=== PATIENT | female | born 1990 | race American Indian/Alaskan Native ===

== ENCOUNTER 2021-03-10 19:10 | Emergency (ER) | payer SELFPAY ==
--- NOTE | 2021-03-10 21:54 | Emergency Department Report ---
ED ENT HPI - General Chief complaint: Sore Throat Stated complaint: THROAT FEELS LIKE IT IS CLOSING Time Seen by Provider: 03/10/21 21:37 Source: patient Mode of arrival: Ambulatory Limitations: No Limitations - History of Present Illness MD complaint: sore throat -: Gradual Location: throat Severity: moderate Quality: aching, dull Consistency: constant Improves with: none Worsens with: none Associated Symptoms: pain with swallowing, sore throat - Related Data Previous Rx's Medication Instructions Recorded Last Taken Type Amoxicillin [Amoxicillin TAB] 875 mg PO BID #20 tablet 03/10/21 Unknown Rx Chlorhexidine Mouthwash [Peridex] 15 ml MM BID #1 bottle 03/10/21 Unknown Rx Lidocaine Viscous 2% 5 ml MM Q3H PRN #120 udc 03/10/21 Unknown Rx Allergies Allergy/AdvReac Type Severity Reaction Status Date / Time No Known Allergies Allergy Unverified 03/20/20 13:42 ED Dental HPI - General Chief complaint: Sore Throat Stated complaint: THROAT FEELS LIKE IT IS CLOSING Time Seen by Provider: 03/10/21 21:37 Source: patient Mode of arrival: Ambulatory Limitations: No Limitations - Related Data Previous Rx's Medication Instructions Recorded Last Taken Type Amoxicillin [Amoxicillin TAB] 875 mg PO BID #20 tablet 03/10/21 Unknown Rx Chlorhexidine Mouthwash [Peridex] 15 ml MM BID #1 bottle 03/10/21 Unknown Rx Lidocaine Viscous 2% 5 ml MM Q3H PRN #120 udc 03/10/21 Unknown Rx Allergies Allergy/AdvReac Type Severity Reaction Status Date / Time No Known Allergies Allergy Unverified 03/20/20 13:42 ED Review of Systems ROS: Stated complaint: THROAT FEELS LIKE IT IS CLOSING Other details as noted in HPI Comment: All other systems reviewed and negative ED Past Medical Hx - Past Medical History Previous Medical History?: No - Surgical History Past Surgical History?: Yes Additional Surgical History: tonisllectomy - Social History Smoking Status: Current Every Day Smoker Substance Use Type: None - Medications Home Medications: Home Medications Medication Instructions Recorded Confirmed Last Taken Type Amoxicillin [Amoxicillin TAB] 875 mg PO BID #20 tablet 03/10/21 Unknown Rx Chlorhexidine Mouthwash [Peridex] 15 ml MM BID #1 bottle 03/10/21 Unknown Rx Lidocaine Viscous 2% 5 ml MM Q3H PRN #120 udc 03/10/21 Unknown Rx ED Physical Exam - General Limitations: No Limitations General appearance: alert, in no apparent distress - Head Head exam: Present: atraumatic, normocephalic - Eye Eye exam: Present: normal appearance, PERRL - ENT ENT exam: Present: normal exam, mucous membranes moist, TM's normal bilaterally, other (Pharynx red swollen with no exudate) - Neck Neck exam: Present: full ROM, lymphadenopathy - Respiratory Respiratory exam: Present: normal lung sounds bilaterally. Absent: respiratory distress - Cardiovascular Cardiovascular Exam: Present: regular rate, normal rhythm. Absent: systolic murmur, diastolic murmur, rubs, gallop - GI/Abdominal GI/Abdominal exam: Present: soft, normal bowel sounds - Extremities Exam Extremities exam: Present: normal inspection - Back Exam Back exam: Present: normal inspection - Neurological Exam Neurological exam: Present: alert, oriented X3 - Psychiatric Psychiatric exam: Present: normal affect, normal mood - Skin Skin exam: Present: warm, dry, intact, normal color. Absent: rash Critical care attestation.: If time is entered above; I have spent that time in minutes in the direct care of this critically ill patient, excluding procedure time. ED Disposition Clinical Impression: Pharyngitis Disposition: DC-01 TO HOME OR SELFCARE Is pt being admited?: No Does the pt Need Aspirin: No Condition: Stable Instructions: Pharyngitis, Strep Throat, Adult, Sore Throat Prescriptions: Amoxicillin [Amoxicillin TAB] 875 mg PO BID #20 tablet Lidocaine Viscous 2% 5 ml MM Q3H PRN #120 udc PRN Reason: Pain, Moderate (4-6) Chlorhexidine Mouthwash [Peridex] 15 ml MM BID #1 bottle Referrals: [facility] [Provider Group] - 3-5 Days
== END 2021-03-10 22:03 | disposition home or self-care (01) ==
LOC: ED 19:10
DX: J02.9 Acute pharyngitis, unspecified (principal); F17.200 Nicotine dependence, unspecified, uncomplicated; Z90.89 Acquired absence of other organs; Z79.899 Other long term (current) drug therapy
CPT/HCPCS: 87116; 87430; 99283

== ENCOUNTER 2021-03-13 22:10 | Emergency (ER) | payer SELFPAY ==
[2021-03-13] MEDS ORDERED: predniSONE 50 MG TAB PO ONE (23:58)
[2021-03-13] MEDS ORDERED: ONDANSETRON 4 MG ODT TAB PO ONE (23:58)
[2021-03-13] MEDS ORDERED: FAMOTIDINE 20 MG TAB PO ONE (23:59)
[2021-03-14 03:50] VITALS: BP 123/71
--- NOTE | 2021-03-14 03:54 | Emergency Department Report ---
ED General Adult HPI - General Chief complaint: Sore Throat Stated complaint: EMESIS PUI?: No Source: patient Mode of arrival: Ambulatory Limitations: No Limitations - History of Present Illness Initial comments: Patient is a 30-year-old -[place] female with no past medical history presents to the ED with complaint of acute onset persistent severe sore throat, dysphagia, dysphonia, chest tightness and persistent dry cough with nausea and vomiting intermittently for the last 3 days. Patient states that she was initially evaluated in this ED and was discharged home on antibiotics amoxicillin for suspected acute streptococcal pharyngitis. Patient states that in the last 2 days she has not been able to eat anything because of worsening pain, and that she has also been having persistent drooling with nausea and vomiting. Patient denies dizziness, syncope, headache, chest pain, shortness of breath, wheezing, nasal and sinus congestion, fever, chills, headache or abdominal pain and diarrhea. MD Complaint: Sore throat, persistent dry cough and dysphagia, nausea and vomiting -: Sudden, days(s) (3) Location: mouth, chest Radiation: non-radiation Severity scale (0 -10): 3 Quality: aching, dull Consistency: intermittent Improves with: none Worsens with: eating Associated Symptoms: denies other symptoms, cough, malaise, nausea/vomiting, other (Sore throat). denies: confusion, chest pain, diaphoresis, fever/chills, headaches, loss of appetite, rash, seizure, shortness of breath, syncope, weakness Treatments Prior to Arrival: NSAID - Related Data Previous Rx's Medication Instructions Recorded Last Taken Type Amoxicillin [Amoxicillin TAB] 875 mg PO BID #20 tablet 03/10/21 Unknown Rx Chlorhexidine Mouthwash [Peridex] 15 ml MM BID #1 bottle 03/10/21 Unknown Rx Lidocaine Viscous 2% 5 ml MM Q3H PRN #120 udc 03/10/21 Unknown Rx Allergies Allergy/AdvReac Type Severity Reaction Status Date / Time No Known Allergies Allergy Unverified 03/20/20 13:42 ED Review of Systems ROS: Stated complaint: EMESIS Other details as noted in HPI Constitutional: denies: chills, fever Eyes: denies: eye pain, eye discharge, vision change ENT: throat pain, other (Dysphagia). denies: ear pain Respiratory: cough. denies: shortness of breath, wheezing Cardiovascular: denies: chest pain, palpitations Endocrine: no symptoms reported Gastrointestinal: nausea, vomiting. denies: abdominal pain, diarrhea Genitourinary: denies: urgency, dysuria, discharge Musculoskeletal: denies: back pain, joint swelling, arthralgia Skin: denies: rash, lesions Neurological: denies: headache, weakness, paresthesias Psychiatric: denies: anxiety, depression Hematological/Lymphatic: denies: easy bleeding, easy bruising ED Past Medical Hx - Past Medical History Previous Medical History?: No - Surgical History Past Surgical History?: Yes Additional Surgical History: tonisllectomy - Social History Smoking Status: Current Every Day Smoker - Medications Home Medications: Home Medications Medication Instructions Recorded Confirmed Last Taken Type Amoxicillin [Amoxicillin TAB] 875 mg PO BID #20 tablet 03/10/21 Unknown Rx Chlorhexidine Mouthwash [Peridex] 15 ml MM BID #1 bottle 03/10/21 Unknown Rx Lidocaine Viscous 2% 5 ml MM Q3H PRN #120 udc 03/10/21 Unknown Rx ED Physical Exam - General Limitations: No Limitations General appearance: alert, in no apparent distress - Head Head exam: Present: atraumatic, normocephalic, normal inspection - Eye Eye exam: Present: normal appearance, PERRL, EOMI Pupils: Present: normal accommodation - ENT ENT exam: Present: mucous membranes moist, TM's normal bilaterally, normal external ear exam, other (Mildly erythematous oropharynx) - Neck Neck exam: Present: normal inspection, full ROM - Respiratory Respiratory exam: Present: normal lung sounds bilaterally. Absent: respiratory distress, wheezes, rhonchi, chest wall tenderness - Cardiovascular Cardiovascular Exam: Present: regular rate, normal rhythm, normal heart sounds. Absent: systolic murmur, diastolic murmur, rubs, gallop - GI/Abdominal GI/Abdominal exam: Present: soft, normal bowel sounds. Absent: tenderness, hyperactive bowel sounds, organomegaly - Extremities Exam Extremities exam: Present: normal inspection, full ROM, normal capillary refill - Back Exam Back exam: Present: normal inspection, full ROM. Absent: tenderness, CVA tenderness (R), CVA tenderness (L), muscle spasm, paraspinal tenderness, vertebral tenderness - Neurological Exam Neurological exam: Present: alert, oriented X3, CN II-XII intact, normal gait, reflexes normal - Psychiatric Psychiatric exam: Present: normal affect, normal mood, anxious - Skin Skin exam: Present: warm, dry, intact, normal color. Absent: rash ED Medical Decision Making - Medical Decision Making This is a 30-year-old -[place] female with no past medical history presents to the ED with complaint of acute onset persistent severe sore throat, dysphagia, dysphonia, chest tightness and persistent dry cough with nausea and vomiting intermittently for the last 3 days. Patient states that she was initially evaluated in this ED and was discharged home on antibiotics amoxicillin for suspected acute streptococcal pharyngitis. Patient states that in the last 2 days she has not been able to eat anything because of worsening pain, and that she has also been having persistent drooling with nausea and vomiting. In the ED, patient is alert and oriented x3 and is not in any distress but anxious, and afebrile in triage. Patient was treated sore throat with oral prednisone, antiemetics and pain medication. On reevaluation, patient's pain is well controlled medication. Patient left the ED AGAINST MEDICAL ADVICE prior to having chest x-ray and prior to having reevaluation. - Differential Diagnosis Strep pharyngitis; viral pharyngitis; GERD; allergic pharyngitis; bronchiti Critical care attestation.: If time is entered above; I have spent that time in minutes in the direct care of this critically ill patient, excluding procedure time. ED Disposition Clinical Impression: Nausea and vomiting in adult patient Acute pharyngitis, unspecified Qualifiers: Pharyngitis/tonsillitis etiology: other specified organisms Qualified Code(s): J02.8 - Acute pharyngitis due to other specified organisms Acute bronchitis Qualifiers: Bronchitis organism: other organism Qualified Code(s): J20.8 - Acute bronchitis due to other specified organisms Disposition: DC-07 LEFT AGAINST MED ADVICE Is pt being admited?: No Does the pt Need Aspirin: No Condition: Undetermined Instructions: Acute Bronchitis (ED) Referrals: [facility] [Provider Group] - 3-5 Days Time of Disposition: 03:59 Print Language: SERBIAN
== END 2021-03-14 05:53 | disposition left against medical advice (07) ==
LOC: ED 22:10
DX: J20.8 Acute bronchitis due to other specified organisms (principal); J20.9 Acute bronchitis, unspecified; F17.200 Nicotine dependence, unspecified, uncomplicated; Z90.89 Acquired absence of other organs; Z98.890 Other specified postprocedural states; Z79.899 Other long term (current) drug therapy
CPT/HCPCS: 99282; J7512; Q0162

== ENCOUNTER 2021-04-22 20:41 | Emergency (ER) | payer SELFPAY ==
[2021-04-23 00:04] VITALS: BP 116/83
--- NOTE | 2021-04-23 00:24 | Emergency Department Report ---
- General Chief Complaint: Upper Respiratory Infection Stated Complaint: MUSCUS BLOCKING AIRWAY Source: patient Mode of arrival: Ambulatory Limitations: No Limitations - History of Present Illness Initial Comments: Patient is a 30-year-old -[place] female with past medical history of chronic heavy tobacco abuse who presents to the ED with complaint of acute onset persistent nasal and sinus congestion, frontal sinus pressure and persistent draining of sinuses to her throat causing nausea for the last 2 days, worse in the last 12 hours. Patient denies dizziness, syncope, nausea and vomiting, d iarrhea, chest pain, shortness of breath, cough, fever, chills, headache, change in vision or neck pain. MD Complaint: sore throat, rhinorrhea, nasal congestion, sinus pain -: Sudden, days(s) (2) Severity: moderate Severity scale (0 -10): 2 Quality: dull Consistency: constant Improves With: nothing Worsens With: nothing Context: sick contacts Associated Symptoms: denies other symptoms, rhinorrhea, nasal congestion, sore throat. denies: fever, chills, diaphoresis, headache, stiff neck, cough, chest pain, shortness of breath, abdominal pain, nausea, vomiting, diarrhea, dysuria, rash, confusion, weight loss, epistaxis, hoarseness, ear pain, other Treatments Prior to Arrival: none - Related Data Previous Rx's Medication Instructions Recorded Last Taken Type Amoxicillin [Amoxicillin TAB] 875 mg PO BID #20 tablet 03/10/21 Unknown Rx Chlorhexidine Mouthwash [Peridex] 15 ml MM BID #1 bottle 03/10/21 Unknown Rx Lidocaine Viscous 2% 5 ml MM Q3H PRN #120 udc 03/10/21 Unknown Rx Azithromycin [Zithromax Z-MARYANNE] 250 mg PO DAILY #6 tablet 04/23/21 Unknown Rx Cetirizine HCl [Zyrtec 10mg tab] 10 mg PO DAILY #30 tablet 04/23/21 Unknown Rx predniSONE [Deltasone] 40 mg PO QDAY #10 tab 04/23/21 Unknown Rx Allergies Allergy/AdvReac Type Severity Reaction Status Date / Time No Known Allergies Allergy Unverified 03/20/20 13:42 ED Review of Systems ROS: Stated complaint: MUSCUS BLOCKING AIRWAY Other details as noted in HPI Constitutional: denies: chills, fever Eyes: denies: eye pain, eye discharge, vision change ENT: throat pain, congestion, other (Sinus pressure and congestion). denies: ear pain Respiratory: denies: cough, shortness of breath, wheezing Cardiovascular: denies: chest pain, palpitations Endocrine: no symptoms reported Gastrointestinal: denies: abdominal pain, nausea, vomiting, diarrhea Genitourinary: denies: urgency, dysuria, discharge Musculoskeletal: denies: back pain, joint swelling, arthralgia Skin: denies: rash, lesions Neurological: denies: headache, weakness, paresthesias Psychiatric: denies: anxiety, depression Hematological/Lymphatic: denies: easy bleeding, easy bruising ED Past Medical Hx - Past Medical History Previous Medical History?: No - Surgical History Past Surgical History?: Yes Additional Surgical History: tonisllectomy - Social History Smoking Status: Never Smoker Substance Use Type: Marijuana - Medications Home Medications: Home Medications Medication Instructions Recorded Confirmed Last Taken Type Amoxicillin [Amoxicillin TAB] 875 mg PO BID #20 tablet 03/10/21 Unknown Rx Chlorhexidine Mouthwash [Peridex] 15 ml MM BID #1 bottle 03/10/21 Unknown Rx Lidocaine Viscous 2% 5 ml MM Q3H PRN #120 udc 03/10/21 Unknown Rx Azithromycin [Zithromax Z-MARYANNE] 250 mg PO DAILY #6 tablet 04/23/21 Unknown Rx Cetirizine HCl [Zyrtec 10mg tab] 10 mg PO DAILY #30 tablet 04/23/21 Unknown Rx predniSONE [Deltasone] 40 mg PO QDAY #10 tab 04/23/21 Unknown Rx ED Physical Exam - General Limitations: No Limitations General appearance: alert, in no apparent distress - Head Head exam: Present: atraumatic, normocephalic, normal inspection - Eye Eye exam: Present: normal appearance, PERRL, EOMI Pupils: Present: normal accommodation - ENT ENT exam: Present: normal orophraynx, mucous membranes moist, TM's normal bilaterally, normal external ear exam, other (Palpable mild frontal and maxillary sinus tenderness; grossly congested nasal passages) - Neck Neck exam: Present: normal inspection, full ROM - Respiratory Respiratory exam: Present: normal lung sounds bilaterally. Absent: respiratory distress, wheezes, rales, rhonchi, chest wall tenderness, accessory muscle use, decreased breath sounds - Cardiovascular Cardiovascular Exam: Present: regular rate, normal rhythm, normal heart sounds. Absent: systolic murmur, diastolic murmur, rubs, gallop - GI/Abdominal GI/Abdominal exam: Present: soft, normal bowel sounds. Absent: tenderness, guarding, rebound, hyperactive bowel sounds, hypoactive bowel sounds, organomegaly - Extremities Exam Extremities exam: Present: normal inspection, full ROM, normal capillary refill - Back Exam Back exam: Present: normal inspection, full ROM. Absent: tenderness, CVA tenderness (R), CVA tenderness (L), muscle spasm, paraspinal tenderness, vertebral tenderness - Neurological Exam Neurological exam: Present: alert, oriented X3, CN II-XII intact, normal gait, reflexes normal - Psychiatric Psychiatric exam: Present: normal affect, normal mood - Skin Skin exam: Present: warm, dry, intact, normal color. Absent: rash ED Course Vital Signs 04/22/21 21:38 Temperature 97.9 F Pulse Rate 69 Respiratory 18 Rate Blood Pressure 116/83 O2 Sat by Pulse 96 Oximetry ED Medical Decision Making - Medical Decision Making This is a 30-year-old -[place] female with past medical history of chronic heavy tobacco abuse who presents to the ED with complaint of acute onset persistent nasal and sinus congestion, frontal sinus pressure and persistent draining of sinuses to her throat causing nausea for the last 2 days, worse in the last 12 hours. In the ED, patient is alert and oriented x3 and is not in any distress. Patient is hemodynamically stable. Patient the history and physical exam findings, the patient symptoms are likely due to allergic rhinitis or sinusitis. Patient was therefore discharged home on medications and advised to follow-up with her primary care physician in 7 to 10 days for reevaluation or return to the ED immediately if symptoms get worse. - Differential Diagnosis Sinusitis; rhinitis; URI; pharyngitis; laryngitis; Critical care attestation.: If time is entered above; I have spent that time in minutes in the direct care of this critically ill patient, excluding procedure time. ED Disposition Clinical Impression: Acute upper respiratory infection, Acute rhinitis Acute sinusitis, unspecified Qualifiers: Sinusitis location: pansinusitis Recurrence: non-recurrent Qualified Code(s): J01.40 - Acute pansinusitis, unspecified Disposition: HOME / SELF CARE / HOMELESS Is pt being admited?: No Does the pt Need Aspirin: No Condition: Stable Instructions: Sinusitis, Adult, [id number], Upper Respiratory Infection, Adult, [id number], Allergic Rhinitis, Adult, [id number] Additional Instructions: Your symptoms are likely due to allergic rhinitis or sinusitis. Therefore take medications with food, drink plenty of fluids and follow-up with your primary care physician in 5 to 7 days for reevaluation. Return to the ED immediately if symptoms get worse. Prescriptions: predniSONE [Deltasone] 40 mg PO QDAY #10 tab Azithromycin [Zithromax Z-MARYANNE] 250 mg PO DAILY #6 tablet Cetirizine HCl [Zyrtec 10mg tab] 10 mg PO DAILY #30 tablet Referrals: [facility] [Provider Group] - 3-5 Days Time of Disposition: 00:23 Print Language: SOUTH AFR[place]
[2021-04-23] MEDS ORDERED: predniSONE 20 MG TAB PO NR (02:00)
== END 2021-04-23 01:25 | disposition home or self-care (01) ==
LOC: ED 20:41
DX: J06.9 Acute upper respiratory infection, unspecified (principal); J01.90 Acute sinusitis, unspecified; J00 Acute nasopharyngitis [common cold]; F12.90 Cannabis use, unspecified, uncomplicated; Z90.49 Acquired absence of other specified parts of digestive tract; Z98.890 Other specified postprocedural states
CPT/HCPCS: 99281; J7512